=== PATIENT | female | born 1980 | race Caucasian/White ===

== ENCOUNTER → 2017-08-15 10:02 | Outpatient (CLI) | payer OTHER, SELFPAY ==
--- NOTE | 2017-08-15 | DI.US.S_ITS ---
PROCEDURE: US PELVIC COMPLETE INDICATIONS: LEFT PELVIC PAIN TECHNIQUE: Real-time scanning was performed of the pelvic organs, with image documentation. Additional endovaginal scanning was necessary due to incomplete visualization of the adnexal and endometrial structures by transabdominal scanning. COMPARISON: None. FINDINGS: Transabdominal scanning: Limited scanning through the kidneys shows no hydronephrosis. No pathologic free abdominal or pelvic fluid. Endovaginal scanning: Uterus: Uterus is normal in size at 8.5 x 3.6 x 4.7 cm. The endometrium measures 14.7 mm in combined thickness. Ovaries: Right ovary not visualized. Complex, thick and irregular walled hemorrhagic ovarian cyst seen on the left measuring 2.3 x 2.1 x 2.1 cm. IMPRESSION: Hemorrhagic appearing left ovarian cyst. Recommend short-term followup pelvic ultrasound in 6-12 weeks to assure resolution. Dictated by: Servando [facility] Interpreted: Leydi Nguyen MD on 08/15/2017 at 13:05 Approved by: Leydi Nguyen MD, PhD on 08/15/2017 at 15:51
== END ==
PROVIDERS: Visit Provider Family Medicine
DX: N83.202 Unspecified ovarian cyst, left side (principal)
CPT/HCPCS: 76830; 76856